=== PATIENT | male | born 1930 | race Caucasian/White ===

== ENCOUNTER 2016-05-12 14:12 | Day surgery (SDC) | payer MEDICARE, OTHER ==
[~2016-05-12] VITALS: Ht 170.2 cm; Wt 67.5 kg
[2016-05-12] VITALS (8 sets, daily range): BP systolic 122–149; BP diastolic 72–85; PULSE 66–87; RESP 10–18; O2SAT 97–100
[~2016-05-12 14:12] MED LIST: ALBU8.5H2 INHALATION; AMLO5TAB2 PO; ASPI-973 PO; BETA1TAB19 PO; FLUT50DI IH; GLUC-181 PO; RANI150T11 PO
[2016-05-12] MEDS ORDERED: Lidocaine PF 1% 30 mL Inj ONE (14:13)
[2016-05-12] MEDS ORDERED: fentaNYL-PF 50 mCg/mL 2 mL Inj ONE (14:13)
[2016-05-12] MEDS ORDERED: Phenylephrine/NS 100 mCg/mL 10 mL Syringe IVPUSH ONE (14:13)
[2016-05-12] MEDS ORDERED: Propofol 10,000 mCg/mL 20 mL Inj ONE (14:13)
[2016-05-12] MEDS ORDERED: Dexamethasone 4 mg/mL Inj ONE (14:13)
[2016-05-12] MEDS ORDERED: Ondansetron 2 mg/mL 2 mL Inj ONE (14:13)
[2016-05-12] MEDS ORDERED: Lactated Ringer's 1,000 ML IV ONE (14:56)
--- NOTE | 2016-05-12 16:09 | PCM.HPANE ---
Patient Data Date of Service: May 12, 2016 Surgeon Admitting Provider: Attending Provider:Christophe Deras MD Primary Care Physician:Reva Other Provider:Park Perry Anesthesia Reason for Visit Lymphoma Ht/WT & BMI Height (Feet): 5 Height (Inches): 7.00 Weight (Kilograms): 67.500 Body Mass Index 23.00 Allergies Coded Allergies: No Known Allergies (Verified Allergy, Unknown, 05/11/15) Past Anesthesia History Anesthesia History: Denies:: Abnormal Airway, Anesthesia Reactions, Difficult Intubation, Fam Anesthesia Reaction, Fam Malignant Hypertherm, Malignant Hyperthermia Diabetes History Hx Diabetes?: No MRSA MRSA: No Medications Blood Thinner: Aspirin Hypertension Medication: Yes Home Meds Incl Beta Sheila: No Reported Medications Ranitidine (Zantac)150 Mg [id number] Mg PO BID 09/10/15 Aspirin 81 Mg Bqxruf90 Mg PO DAILY Ref 0 05/28/15 Albuterol HFA (Proair HFA)8.5 Gm Hfa.aer.ad2 Puffs INHALATION Q4H #1 INHALER 05/25/15 Fluticasone Propionate (Flovent Diskus)50 Mcg Disk.w.dev1 Puff IH BID #1 INHALER Ref 0 05/25/15 Amlodipine 5 Mg Tablet5 Mg PO DAILY Ref 0 05/22/15 Vit A/Vit C/Vit E/Zinc/Copper (Preservision Areds Tablet)1 Each Tablet1 Each PO DAILY 05/22/15 Gluc/Eliud-MSM#1/C/Zuhair/Aleksey/Bor (Osteo Bi-Flex Caplet)1 Each Tablet1 Each PO BID 05/22/15 History History of ENT Problems?: No HEENT History: Positive for:: Cataracts (bilateral / macular degeneration left eye) Hearing Problem Denies:: Abnormal Airway Difficult Intubation Dysphagia Sinus Problem TMJ Hx of Heart Problems?: Yes Cardiovascular History: Positive for:: Hypertension Denies:: AICD Abdominal Aortic Aneurism Atrial Fibrillation Congestive Heart Failure Coronary Artery Disease Edema Heart Murmur Irregular Heartbeat Pacemaker Peripheral Vascular Hx of Respiratory Problem?: Yes Respiratory History: Positive for:: Asthma Pneumonia (As a child age 14) Denies:: Chest Surgery Dyspnea Oxygen Administration Tuberculosis Use of C-PAP Machine Use of Inhalers / NEBS Hx Neurologic Problems?: No Neurological History: Denies:: CVA Headaches Multiple Sclerosis Parkinson's Disease Seizures Hx of GI Problems?: Yes Gastrointestinal History: Positive for:: Diverticulitis Gastroesphageal Reflux (on rx) Hiatal Hernia Denies:: Gastrointestinal Bleeding Hepatitis Hx of Problems?: No Genitourinary History: Denies:: Kidney Stones Urinary Tract Infection Male Hx: Positive for:: Prostate Problems (prostatectomy) Skin History: Positive for:: History Skin Disorders? (face- bx done recently tues am) Denies:: Pressure Ulcers Hx Musculoskeletal Problems?: Yes Musculoskeletal History: Positive for:: Degenerative Joint Denies:: Back Injury Joint Replacement Musculoskeletal Trauma Osteoarthritis Rheumatoid Arthritis Systemic Lupus Hx of Psycho/Social Problems?: No Hx Surgeries?: No (Prostectomy , ing. lymph node bs) Hx Any Other Health Problems?: Yes Other History: Positive for:: Cancer (non hodgkins lymphoma- current admission dx) Hospitalization Denies:: Thyroid Disease History Blood Transfusions: Positive for:: Accept Blood Products? Denies:: Blood Transfuse Reaction Blood Transfusions Hx Diabetes: No Hx Alcohol Use: YesAlcoholic Drinks Per Day: 2 drinks dailyHx Substance Use: No Smoking Status: Never Smoker Have You Smoked inLast 12 mo: No Stop/Bang S-Snoring: Do You Snore Loudly: Yes T-Tired: feel tired, fatigued: No O-Obsered: Observed not breath: No P-Blood Pressure: treated: Yes B- Body Mass Index > 35 kg/m2: No A- Age over 50: Yes N- Neck Large Circumference: No G- Gender Male: Yes RAYMOND Total Score: 4 RAYMOND Risk Assessment: High Risk, =/>3 Yes RAYMOND Category 4 OutPt Procedure: Yes Risk Assessment Category Category 1A: Patient has history of documented sleep apnea, and HAS NOT received any narcotic, sedative or anesthesia administration during this stay. Category 1B: Patient has history of documented sleep apnea, and HAS received any narcotic , sedative or anesthesia administration during this stay Category 2: Patient has SUSPECTED Obstructive Sleep Apnea, and HAS received any narcotic , sedative or anesthesia administration during this stay. Category 3: Patient has SUSPECTED Obstructive Sleep Apnea and HAS NOT received narcotic, sedative or anesthesia administration during this stay. Category 4: Outpatient in Procedural Areas with known sleep apnea or who screen positive for High Risk via the STOP/BANG questionnaire. Exam Exam Vital Signs Vital Signs Date Time Temp Pulse Resp B/P Pulse Ox O2 Delivery O2 Flow Rate FiO2 05/12/16 14:38 36.5 73 18 149/72 99 Room Air General Appearance: Alert, Oriented X3, Cooperative, No Acute Distress HEENT/AIRWAY: MP 3 Lungs: Clear to Auscultation, Normal Air Movement Heart: Exam Unremarkable, Regular Rate/Rhythm, No Murmurs/Rubs/Gallops Meds/Labs/Diagnostics Admission Meds Current Medications Lactated Ringer's (Lr) 1,000 ml @ ud STK-MED ONCE IV Last administered on t 14:56; Start 05/12/16 at 14:56; Stop 05/12/16 at 14:57; Status DC Plan Impression Patient chart reviewed, patient interviewed and anesthestic plan with risks, benefits, and alternatives discussed, and informed consent obtained. NPO Status: breakfast 0630 ASA Physical Status: ASA2 Mod Systemic Disease Anesthetic Plan: GA Bene/Risks/Altern/Consents: Yes HP Complete Prior to Induction: Yes Govind Martinez MD May 12, 2016 16:09
[2016-05-12] MEDS ORDERED: Lactated Ringer's 500 ML IV PRN (16:17)
[2016-05-12] MEDS ORDERED: Lactated Ringer's 1,000 ML IV SCH (16:17)
[2016-05-12] MEDS ORDERED: HYDROmorphone 1 mg/mL Inj IVPUSH PRN (16:20)
[2016-05-12] MEDS ORDERED: MetoCLOpramide 5 mg/mL 2 mL Inj IVPUSH PRN (16:20)
[2016-05-12] MEDS ORDERED: Atropine 0.4 mg/mL Inj IVPUSH PRN (16:20)
[2016-05-12] MEDS ORDERED: Labetalol 5 mg/mL 4 mL Inj IV PRN (16:20)
[2016-05-12] MEDS ORDERED: EPHEDrine Sulfate 50 mg/mL Inj IVPUSH PRN (16:20)
[2016-05-12] MEDS ORDERED: fentaNYL-PF 50 mCg/mL 2 mL Inj IVPUSH PRN (16:20)
[2016-05-12] MEDS ORDERED: hydrALAZINE 20 mg/mL Inj IVPUSH PRN (16:20)
[2016-05-12] MEDS ORDERED: Phenylephrine 10,000 mCg/mL Inj IVPUSH PRN (16:20)
[2016-05-12] MEDS ORDERED: Ondansetron 2 mg/mL 2 mL Inj IVPUSH PRN (16:20)
[2016-05-12] MEDS ORDERED: Bupivacaine-MPF 0.5% 30 mL Inj INFILTRATE ONE (16:59)
[2016-05-12] MEDS ORDERED: oxyCODONE-Acetamin 5-325 mg Tablet PO PRN (17:10)
--- NOTE | 2016-05-12 22:53 | OP ---
[address] [address] OPERATIVE REPORT PATIENT: HERMELINDO SILVA : 1930 MR#: [id number] ADMIT: 05/12/2016 JOB ID: [id number] DATE OF SURGERY: 05/12/2016 ANESTHESIA: General. PREOPERATIVE DIAGNOSIS(ES): Lymphoma with concern for transformation. POSTOPERATIVE DIAGNOSIS(ES): Lymphoma with concern for transformation. PROCEDURE: Left deep axillary lymph node excisional biopsy. SURGEON: Christophe Deras MD. FOAM MACHINE OPERATOR: Marcin Ocampo PA-C (the assistant signal maintainer was required for the safe and timely completion of the case) and JOSE CRUZ Curiel. COMPLICATIONS: None. ESTIMATED BLOOD LOSS: Minimal. CONDITION: Satisfactory. SPECIMEN: Left axillary lymph node. FINDINGS: There was a large conglomeration of matted nodes in the left axilla. An approximately 3 cm node was removed and sent for flow cytometry. INDICATIONS/SIGNIFICANT HISTORY: The patient is an 87-year-old man with a history of non-Hodgkin's lymphoma with recent concern for transformation due to PET-CT showing enlarged PET avid nodes in the left axilla. He was referred for excisional biopsy to obtain tissue for flow cytometry. OPERATIVE TECHNIQUE: The patient was taken into the operating room and placed in supine position. General anesthesia was administered and the left arm and axilla were prepped and draped in the standard surgical fashion. A procedural pause was performed. I made a transverse left axillary dissection and carried dissection down through the skin and subcutaneous tissue. The axillary fascia was entered and a large node easily palpated. This was circumferentially dissected free using a LigaSure Precise device. It was eventually delivered and completely removed. This was sectioned and sent for flow cytometry as well as gross pathologic examination. The fascia was then closed with two deep layers using 3-0 Vicryl. The skin was closed using 4-0 Monocryl. Local anesthetic was injected. Dermabond was applied. The entire procedure was well tolerated without complication.
--- NOTE | 2016-05-13 10:40 | PCM.ANEP1 ---
Post Anesthesia Phase 1 PACU Phase 1 Assessment Date of Service: May 12, 2016 Anesthetic Administered: GA Level of Alertness: Sleepy, easy to arouse MCLEOD's with Equal Strength: Yes Pain: No Nausea or Vomiting: No Oxygen Delivery: Simple Mask Lungs: Clear to Auscultation, Normal Air Movement Govind Martinez MD May 13, 2016 10:40
--- NOTE | 2016-05-13 10:41 | PCM.ANEP2 ---
Post Anesthesia Evaluation ASA/CMS Post Anesthesia Date of Service: May 13, 2016 VS in Patient's Normal Range?: Yes Resp Stable; Airway Patent?: Yes CV Function & Hydration Stable: Yes Mental Status Recovered?: Yes Pain control Satisfactory?: Yes N/V Control Satisfactory?: Yes Govind Martinez MD May 13, 2016 10:41
--- NOTE | 2016-05-18 11:30 | PATH ---
SURGICAL PATHOLOGY Attending Physician:Christophe Deras MD CASE STATUS: Signed Out PATIENT NAME: HERMELINDO SILVA PID: [id number] : 1930 DATE COLLECTED:05/12/2016 00:00 SPECIMEN: Lymph Node, Biopsy CLINICAL HISTORY: LYMPHOMA 1). LEFT AXILLARY LYMPH NODE FINAL DIAGNOSIS: Left Axillary Lymph Node, Excisional Biopsy: Diffuse large B-cell lymphoma; please see comment. ICD C85.9 NOTE: The morphologic, immunohistochemical and flow cytometric results are supportive of a diffuse large B-cell lymphoma. In a patient with a known previous low-grade follicular lymphoma, this most likely represents transformation from the low-grade follicular lymphoma. In the current biopsy, there is no indication of a residual low-grade follicular lymphoma. Tissue in the paraffin block can be used to perform FISH testing if clinically indicated. Flow Interpretation: ([id number]) Left axillary lymph node: Abnormal CD10+ kappa-restricted monoclonal population of large lymphocytes consistent with a large B-cell lymphoma; see Comment. Flow Comment: Flow cytometric analysis of a cell suspension prepared from the left axillary lymph node biopsy shows a heterogeneous population of lymphocytes in which the small lymphocytes and large lymphocytes can be based upon CD45 expression in conjunction with forward angle and right angle side scatter. The large cells are a kappa-restricted monoclonal population of B cells expressing CD19, CD20, CD22, FMC7(subset), CD10(uniform) and CD38(uniform). The large monoclonal B cells lack CD5, CD23, CD103 and CD11c. The large monoclonal B cells comprise 43% of the total lymphocytes recovered. The remaining 53% of the lymphocytes are of small size and consist of 96% T cells with no immunophenotypic abnormality. The overall flow cytometric findings are consistent with a large CD10+ B-cell lymphoma. The immunophenotype of this large B-cell lymphoma is similar to a previous flow cytometric analysis of a biopsy of a left inguinal lymph node collected on 06/19/2014. 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 The current biopsy in which the neoplastic B cells are of large size suggest the possibility of transformation to a large cell lymphoma. This suggestion needs to be confirmed by correlation with the biopsy morphology and immunohistochemistry. GROSS DESCRIPTION: The specimen is received in formalin, labeled with the patient's name, sublabeled as L axillary node and consists of a piece of lymph node (3.0 x 2.3 x 1.9 cm). Section code: (A-E) lymph node, serially sectioned. Specimen entirely submitted. 05/14/16 JM MICRO DESCRIPTION: Sections show an enlarged lymph node in which the lymph node architecture is completely replaced by an infiltrate of predominantly atypical large lymphocytes. The pattern of infiltration is predominantly diffuse with no lymphoid follicles identified on the routine stains. Mitoses are prevalent, but a "starry emmanuel" appearance is not present. Areas of necrosis are also not identified. IMMUNOHISTOCHEMISTRY: The morphologic impression is of a diffuse large lymphocytic lymphoma. Immunohistochemistry is performed for further evaluation with the following results: STAINRESULT [id number] positive on atypical large lymphocytes. KP86Dkhwgulw in a subset of atypical large lymphocytes. MP7Cemlkvcb in scattered typical small lymphocytes. JCB7Jrjnatbnv positive in the atypical large lymphocytes. XWW3Pctzjswm in the atypical large lymphocytes. NP55Lxwmhrrh in rare follicular dendritic cell meshworks with additional staining of the diffuse large cell infiltrate. DP39Dodqppgl. Ki-6780% positive in atypical large lymphocytes. MUM-1Positive in a small subset of atypical large lymphocytes. ICD-9 CODES: CPT CODES: 1: 18110, 41953, 27812, 01157, 75014, 63415, 53294, 31364, 10085, 79889 PROCEDURE/ADDENDA: Addendum SPI Addendum Diagnosis Slides reviewed at [facility] Hematopathology by Dr. Bre Garcia They agree with our original diagnosis. Addendum Comment Please see [facility] report [id number] for complete details. Electronically Signed Out Nick Ladd MD, PhD Addendum SPI Addendum Diagnosis This is an addendum to report the results of FISH and IHC Studies, done at [facility] Pathology. 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 Hematopathology Report [id number] for complete details. Testing and Interpretation performed by [facility] Path[facility], [place], [place]. Electronically Signed Out Nick Ladd MD, PhD Electronically Signed Out Nick Ladd MD, PhD [facility] [address], [place] [address] Technical component performed at [facility], [address], [place], [address]
== END 2016-05-12 23:59 | disposition home or self-care (01) ==
LOC: SAS 14:12
PROVIDERS: ATTEND General Practice
DX: C85.90 Non-Hodgkin lymphoma, unspecified, unspecified site (principal); I10 Essential (primary) hypertension; J45.909 Unspecified asthma, uncomplicated; K21.9 Gastro-esophageal reflux disease without esophagitis; K57.30 Diverticulosis of large intestine without perforation or abscess without bleeding; K44.9 Diaphragmatic hernia without obstruction or gangrene; Z90.79 Acquired absence of other genital organ(s); Z79.82 Long term (current) use of aspirin
CPT/HCPCS: 36415; 38525; J1100; J2370; J2405; J3010; J7120